=== PATIENT | female | born 1970 | race Caucasian/White ===

== ENCOUNTER 2022-04-11 15:35 | Emergency (ER) | payer OTHER, SELFPAY ==
--- NOTE | ~2022-04-11 | XR_ITS ---
XR knee LT 3V 04/11/2022 17:06 INDICATION: Left knee pain PROCEDURE: 3 views left knee COMPARISON: No prior studies for comparison. FINDINGS: Fracture, dislocation or subluxation is not identified. Small joint effusion. The soft tiss ues appear within normal limits. No foreign bodies are identified. IMPRESSION: 1: No fracture. 2: Small joint effusion. Reviewed, dictated and finalized at location A.
--- NOTE | ~2022-04-11 | XR_ITS ---
XR hand RT min 3V 04/11/2022 17:06 Indication: Right hand pain after fall Procedure: 3 views right hand Comparison: 03/04/2014 Findings: There is mild polyarticular osteoarthritis. Osteopenia. No acute fracture, subluxation or d islocation. No significant soft tissue abnormality. No foreign bodies. 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 Reviewed, dictated and finalized at location A. 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
[2022-04-11 15:53] VITALS: BP 138/73; PULSE 92; RESP 18; TEMP 36.2; O2SAT 99
--- NOTE | 2022-04-11 16:40 | ED.FALL ---
HPI - Fall General Chief Complaint: Fall Stated Complaint: fall, Time Seen by Provider: 04/11/22 16:29 Source: patient Mode of arrival: ambulatory Limitations: no limitations History of Present Illness HPI Narrative: 51 years old white female tripped on a wet floor at work, injuring left knee and right hand. She denies loss of consciousness, head injury, back injury or any other injuries. Prior to arrival. Related Data Allergies Allergy/AdvReac Type Severity Reaction Status Date / Time codeine Allergy Intermediate Hives Verified 04/11/22 15:59 Review of Systems Review of Systems: CONSTITUTIONAL: Denies fever, chills, or sweats. EYES: Denies visual changes, redness, or discharge. ENT: Denies rhinorrhea, congestion, sore throat, or otalgia. CARDIOVASCULAR: Denies chest pain, palpitations, or edema. RESPIRATORY: Denies cough or dyspnea. GASTROINTESTINAL: Denies abdominal pain, nausea, vomiting, or diarrhea. GENITOURINARY: Denies dysuria or hematuria. SKIN: Denies rash or itching. MUSCULOSKELETAL: Denies back pain, joint pain, or myalgia. NEUROLOGIC: Denies headache, numbness, or weakness. PSYCHIATRIC: Denies anxiety or depression. Exam Narrative: General appearance: Well-developed, well-nourished Skin: Normal color Head: Normocephalic, nontraumatic Eyes: Clear conjunctiva ENT: Oropharynx normal, ears normal, nose normal Neck: Supple, nontender Chest and respiratory: Airway patent, no respiratory distress, no accessory muscle use Heart: Regular rate/rhythm Abdomen: Soft, nontender, no organomegaly, quiet bowel sounds Vascular: Normal peripheral pulses, normal capillary refill. Musculoskeletal: Left knee diffuse tenderness and abrasion anteriorly, slight limited range of motion, right middle finger swelling, no bruises, no deformity Neurologic: Alert and oriented ?3, [employer] is normal as tested, no gross motor deficit Course Vital Signs Vital signs: Vital Signs Temperature 36.2 C L 04/11/22 15:53 Pulse Rate 92 04/11/22 15:53 Respiratory Rate 18 04/11/22 15:53 Blood Pressure 138/73 04/11/22 15:53 Pulse Oximetry 99 04/11/22 15:53 Oxygen Delivery Room Air 04/11/22 15:53 Temperature 36.2 C L 04/11/22 15:53 Pulse Rate 92 04/11/22 15:53 Respiratory Rate 18 04/11/22 15:53 Blood Pressure 138/73 04/11/22 15:53 Pulse Oximetry 99 04/11/22 15:53 Oxygen Delivery Room Air 04/11/22 15:53 MDM - Fall Imaging Data Radiologist's impression: Impressions Knee X-Ray 04/11/22 17:10 IMPRESSION: 1: No fracture. 2: Small joint effusion. 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 Critical Care Time Critical Care Time Critical Care Time: No Discharge Plan Discharge Clinical Impression: Contusion of knee, left, Contusion of finger of right hand Patient Disposition: Home, Self-Care Condition: Stable Instructions: Antibiotic Form, Contusion in Adults (ED), Abrasion (ED), Knee Pain (ED) Additional Instructions: Return if symptoms are worsening , call your family physician for appointment, take Tylenol as as needed for aches and pain, continue home medications., Take ibuprofen 600 every 6 hours as needed. Ice pack 20 minutes/h for the next 24 hours Follow-up/Referrals: Andrea Harrell MD [Physician] - Stand Alone Forms: Work/School Release IP
[2022-04-11] MEDS: ACETAMINOPHEN 325 MG TABLET 650 MG PO (16:53)
== END 2022-04-11 17:51 | disposition home or self-care (01) ==
PROVIDERS: Emergency Provider Emergency Medicine; PCP Nurse Practitioner Family
DX: S80.02XA Contusion of left knee, initial encounter (principal); S60.031A Contusion of right middle finger without damage to nail, initial encounter; W01.0XXA Fall on same level from slipping, tripping and stumbling without subsequent striking against object, initial encounter
CPT/HCPCS: 73130; 73562; 99284; A9270